=== PATIENT | male | born 1950 | race Caucasian/White ===

== ENCOUNTER 2018-06-16 14:35 | Emergency (ER) | payer MEDICARE ==
[~2018-06-16] VITALS: Ht 182.9 cm; Wt 113.4 kg
[~2018-06-16 14:35] MED LIST: ATENOLOL-CHLOR1 EACH
[2018-06-16] MEDS ORDERED: RANITIDINE 150150 M1 PO (14:52)
[2018-06-16] MEDS ORDERED: NORCO 5-325 TA1 EAC1 PO (16:33)
[2018-06-16] MEDS ORDERED: KEFLEX500 M1 PO (16:33)
[2018-06-16 17:13] VITALS: BP 144/80
== END 2018-06-16 17:14 | disposition home or self-care (01) ==
LOC: M.ERS 14:35
DX: S61.211A Laceration without foreign body of left index finger without damage to nail, initial encounter (principal); F17.200 Nicotine dependence, unspecified, uncomplicated; Z88.8 Allergy status to other drugs, medicaments and biological substances; Z85.46 Personal history of malignant neoplasm of prostate; W26.8XXA Contact with other sharp object(s), not elsewhere classified, initial encounter; Y92.89 Other specified places as the place of occurrence of the external cause; Y99.0 Civilian activity done for income or pay; Y99.8 Other external cause status

== ENCOUNTER 2019-10-25 11:08 | Emergency (ER) | payer MEDICARE ==
[~2019-10-25] VITALS: Ht 182.9 cm; Wt 113.4 kg
[~2019-10-25 11:08] MED LIST changes: +KEFLEX500 M1 PO; +NORCO 5-325 TA1 EAC1 PO; +RANITIDINE 150150 M1 PO
[2019-10-25] MEDS ORDERED: CLARITIN10 M3 PO (11:27)
[2019-10-25] MEDS ORDERED: NORCO 5-325 TA1 EAC1 PO (13:09)
[2019-10-25 13:41] VITALS: BP 139/77
== END 2019-10-25 13:42 | disposition home or self-care (01) ==
LOC: M.ERS 11:08
DX: S52.512A Displaced fracture of left radial styloid process, initial encounter for closed fracture (principal); S62.307A Unspecified fracture of fifth metacarpal bone, left hand, initial encounter for closed fracture; M25.511 Pain in right shoulder; M25.561 Pain in right knee; F17.210 Nicotine dependence, cigarettes, uncomplicated; Z85.46 Personal history of malignant neoplasm of prostate; Z88.8 Allergy status to other drugs, medicaments and biological substances; W10.8XXA Fall (on) (from) other stairs and steps, initial encounter; Y93.89 Activity, other specified; Y92.89 Other specified places as the place of occurrence of the external cause; Y99.8 Other external cause status

== ENCOUNTER → 2019-10-26 | Outpatient (CLI) | payer MEDICARE ==
[~2019-10-26] MED LIST changes: +CLARITIN10 M3 PO
== END ==
LOC: M.LAB 14:45
PROVIDERS: ATTEND Physician Assistant
DX: Z01.818 Encounter for other preprocedural examination (principal); S62.306D Unspecified fracture of fifth metacarpal bone, right hand, subsequent encounter for fracture with routine healing

== ENCOUNTER 2020-01-13 08:54 | Emergency (ER) | payer MEDICARE ==
[~2020-01-13] VITALS: Ht 180.3 cm; Wt 111.1 kg
[2020-01-13 09:11] VITALS: BP 136/85
[2020-01-13 09:53] LABS: ABSOLUTE BASOPHILS 0.1 thou/uL (0.0-0.2); ABSOLUTE EOSINOPHILS 0.2 thou/uL (0.0-0.7); ABSOLUTE LYMPHOCYTES 1.3 thou/uL (0.8-5.3); ABSOLUTE MONOCYTES 0.5 thou/uL (0.0-1.2); ABSOLUTE NEUTROPHILS 4.6 thou/uL (1.6-8.1); BASOPHILS 1.1 %; EOSINOPHILS 2.9 %; HEMATOCRIT 41.3 % (42.0-52.0); HEMOGLOBIN 14.3 gm/dL (14.0-18.0); LYMPHOCYTES 19.2 %; MCH 31.7 pg (26.0-34.0); MCHC 34.6 g/dL (28.0-37.0); MCV 91.5 fL (80.0-100.0); MONOCYTES 7.9 %; MPV 8.8 fl. (7.2-11.1); NUCLEATED RBCS 0 /100WBC; PLATELET COUNT* 204 thou/uL (150-400); POLYS 68.9 %; RBC 4.52 mil/uL (4.50-6.00); RDW-CV 14.3 % (10.5-14.5); WBC 6.7 thou/uL (4.0-11.0)
[2020-01-13 09:58] LABS: CALCIUM 8.6 mg/dL (8.5-10.1); CREATININE 1.2 mg/dL (0.6-1.3)
[2020-01-13 10:08] LABS: MAGNESIUM 2.1 mg/dL (1.8-2.4); TOTAL BILIRUBIN 0.7 mg/dL (<0.1-1.0); TOTAL PROTEIN 7.7 g/dL (6.4-8.2)
[2020-01-13 11:05] VITALS: BP 145/77
--- NOTE | 2020-01-14 10:59 | EKG ---
[place] [address] ELECTROCARDIOGRAM REPORT Name: YASMIN ALBERTS Room: [facility]#: [id number] Admission: 01/13/20 Attend Phys: Discharge: 01/13/20 Date of : 48 Date of Service: 01/13/20929 Report #: [id number] THIS REPORT FOR: //name// [facility] ED Test Date: 2020-01-13 Test Time: 09:30:57 Pat Name: YASMIN ALBERTS Department: Room: [facility] Gender: Vice President Integrated: : 1950 Requested By: Baldemar Renteria Order Number: [id number] : Florentin Vizcaino Measurements Intervals [place] Rate: 61 P: 48 WA: 179 QRS: 16 QRSD: 107 T: 7 QT: 433 QTc: 437 Interpretive Statements Sinus rhythm Compared to ECG 02/16/2017 12:40:32 Intraventricular conduction delay no longer present Electronically Signed On 01-14-2020 10:59:30 CDT by Florentin Vizcaino [email or web address] <ELECTRONICALLY SIGNED> By: Florentin Vizcaino MD, [facility] 01/14/20 1059 Florentin Vizcaino MD, [facility] /EPI
== END 2020-01-13 11:09 | disposition left against medical advice (07) ==
LOC: M.ERS 08:54 → M.TBA-ER 10:26
PROVIDERS: Emergency Medicine Emergency Medical Services
DX: R07.89 Other chest pain (principal); F17.210 Nicotine dependence, cigarettes, uncomplicated; Z88.8 Allergy status to other drugs, medicaments and biological substances; Z85.46 Personal history of malignant neoplasm of prostate

== ENCOUNTER → 2020-02-20 | Outpatient (CLI) | payer MEDICARE | LOC: M.ULTRA 12:32 | PROVIDERS: ATTEND Internal Medicine | DX: R31.0 Gross hematuria (principal); Z85.46 Personal history of malignant neoplasm of prostate ==

== ENCOUNTER → 2020-03-01 | Outpatient (CLI) | payer MEDICARE | LOC: M.CT 11:34 | PROVIDERS: ATTEND Urology | DX: K57.30 Diverticulosis of large intestine without perforation or abscess without bleeding (principal); R19.09 Other intra-abdominal and pelvic swelling, mass and lump ==